=== PATIENT | male | born 1990 | race African-American/Black ===

== ENCOUNTER 2020-03-03 16:36 | Emergency (ER) | payer MEDICAID, OTHER ==
[~2020-03-03] VITALS: Ht 170.2 cm; Wt 85.0 kg
[2020-03-03 17:55] LABS: ALANINE AMINOTRANSFERASE 27 U/L (12-78); ALBUMIN 3.5 g/dL (3.4-5.0); ANION GAP 6 mmol/L (5-15); BASOPHILS # (AUTO) 0.02 x10^3/uL (0-0.1); BASOPHILS % (AUTO) 0 % (0-1); CALCIUM 8.5 mg/dL (8.5-10.1); CHLORIDE 109 mmol/L (98-107); CREATININE 1.26 mg/dL (0.7-1.3); EOSINOPHILS # (AUTO) 0.11 x10^3/uL (0-0.4); EOSINOPHILS % (AUTO) 2 % (1-7); LYMPHOCYTES # (AUTO) 2.31 x10^3/uL (1-3.4); LYMPHOCYTES % (AUTO) 36 % (22-44); MD NO; MEAN CORPUSCULAR HEMOGLOBIN 27.7 pg (27.5-34.5); MEAN CORPUSCULAR HGB CONC 31.3 g/dL (33.2-36.2); MEAN CORPUSCULAR VOLUME 88.3 fL (81-97); MEAN PLATELET VOLUME 7.6 fL (7.4-10.4); MONOCYTES # (AUTO) 0.57 x10^3/uL (0.2-0.8); MONOCYTES % (AUTO) 9 % (2-9); NEUTROPHILS # (AUTO) 3.37 x10^3/uL (1.8-6.8); NEUTROPHILS % (AUTO) 53 % (42-75); PLATELET COUNT 346 x10^3/uL (130-400); RED BLOOD COUNT 5.59 x10^6/uL (4.38-5.82); RED CELL DISTRIBUTION WIDTH 13.2 % (9.4-14.8)
[2020-03-03 17:57] LABS: ALKALINE PHOSPHATASE 64 U/L (45-117); BILIRUBIN,TOTAL 0.2 mg/dL (0.2-1.0); TOTAL PROTEIN 7.3 g/dL (6.4-8.2)
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
[2020-03-03 18:55] LABS: MICROSCOPIC INDICATED
--- NOTE | 2020-03-03 18:57 | NUR ---
REPORT GIVEN TO CLIFFORD LAU
--- NOTE | 2020-03-03 19:15 | NUR ---
Hospitalist at bedside
[2020-03-03] MEDS ORDERED: LIDOCAINE-MPF 1%, 5ML ONE (19:27)
[2020-03-03] MEDS ORDERED: AZITHROMYCIN 500 MG TABLET ONE (19:27)
[2020-03-03] MEDS ORDERED: CEFTRIAXONE 250 MG ONE ×3 (19:27→19:42)
[2020-03-03] MEDS ORDERED: AZITHROMYCIN 500 MG TABLET PO ONE (19:30)
[2020-03-03] MEDS ORDERED: CEFTRIAXONE 250 MG IM ONE (19:30)
[2020-03-03] MEDS ORDERED: AZITHROMYCIN 250 MG TABLET ONE (19:32)
--- NOTE | 2020-03-03 19:33 | NUR ---
TASK RN: PT MEDICATED PER AUG, PROVIDED SNACKS. NAD. APPEARS COMFORTABLE, DENIES ADDITIONAL NEEDS AT THIS TIME.
[2020-03-03 19:59] VITALS: BP 120/66
--- NOTE | 2020-03-03 20:00 | NUR ---
D/c discussed with pt. Pt verbalizes understanding r/t meds and f/u care. Ambulated out of ED independently, steady gait
== END 2020-03-03 20:01 | disposition home or self-care (01) ==
LOC: ED 17:07
DX: R10.11 Right upper quadrant pain (principal); R10.13 Epigastric pain; F17.210 Nicotine dependence, cigarettes, uncomplicated
CPT/HCPCS: 36415; 76700; 80053; 81001; 83690; 85025; 87086; 87491; 87591; 96372; 99284; 99406; J0696